=== PATIENT | female | born 1955 | race Caucasian/White ===

== ENCOUNTER 2022-10-21 06:29 | Emergency (ER) | payer OTHER, MEDICARE ==
[2022-10-21] MEDS ORDERED: Lidocaine 1% w/Epinephrine 1:200K 30 ML VIAL ONE (08:18)
[2022-10-21] MEDS ORDERED: Bacitracin 1 PK ONE (09:57)
== END 2022-10-21 10:30 | disposition home or self-care (01) ==
LOC: CSHERS 06:29
DX: S52.514A Nondisplaced fracture of right radial styloid process, initial encounter for closed fracture (principal); S01.81XA Laceration without foreign body of other part of head, initial encounter; S81.011A Laceration without foreign body, right knee, initial encounter; W01.198A Fall on same level from slipping, tripping and stumbling with subsequent striking against other object, initial encounter
CPT/HCPCS: 12002; 12014; 29125; 70450; 70486; 72125; 76377

== ENCOUNTER 2023-06-16 09:30 | Outpatient (CLI) | payer MEDICARE | END 2023-06-16 09:31 | disposition home or self-care (01) | LOC: CSHMAMMO 09:30 | PROVIDERS: ATTEND Family Medicine | DX: Z12.31 Encounter for screening mammogram for malignant neoplasm of breast (principal); Z13.820 Encounter for screening for osteoporosis; M81.0 Age-related osteoporosis without current pathological fracture; M85.852 Other specified disorders of bone density and structure, left thigh | CPT/HCPCS: 77063; 77067; 77080 ==

== ENCOUNTER 2023-09-11 09:42 | Outpatient (CLI) | payer MEDICARE | END 2023-09-11 09:43 | disposition home or self-care (01) | LOC: CSHRAD 09:42 | PROVIDERS: ATTEND Internal Medicine Rheumatology | DX: M81.0 Age-related osteoporosis without current pathological fracture (principal); Z91.89 Other specified personal risk factors, not elsewhere classified; M47.814 Spondylosis without myelopathy or radiculopathy, thoracic region; M41.86 Other forms of scoliosis, lumbar region | CPT/HCPCS: 72070 ==

== ENCOUNTER 2024-06-17 10:30 | Outpatient (CLI) | payer MEDICARE | END 2024-06-17 10:31 | disposition home or self-care (01) | LOC: CSHMAMMO 10:30 | PROVIDERS: ATTEND Family Medicine | DX: Z12.31 Encounter for screening mammogram for malignant neoplasm of breast (principal) | CPT/HCPCS: 77063; 77067 ==